=== PATIENT | male | born 1985 | race Caucasian/White ===

== ENCOUNTER 2017-10-01 06:54 | Emergency (ER) | payer BC, MEDICAID, OTHER ==
[~2017-10-01] VITALS: Ht 185.4 cm; Wt 109.0 kg
[2017-10-01] MEDS ORDERED: ACETAMINOPHEN 325MG TABLET PO ONE (07:30)
[2017-10-01 08:08] LABS: BASOPHILS % 0.7 % (0.0-2.0); HEMATOCRIT. 42.8 % (42.0-52.0); HEMOGLOBIN. 14.6 g/dL (14.0-18.0); LYMPHOCYTES % 26.9 % (20.0-50.0); MEAN CORPUSCULAR HEMOGLOBIN 28.2 pg (28.0-32.0); MEAN CORPUSCULAR VOLUME 82.9 fL (80.0-94.0); MEAN PLATELET VOLUME 8.7 fl (7.4-10.4); MONOCYTES % 6.9 % (2.0-8.0); NEUTROPHILS % 63.5 % (40.0-76.0); PLATELET 198 x1000/uL (130-400); RED BLOOD CELL COUNT 5.16 mill/uL (4.7-6.1); RED CELL DISTRIBUTION WIDTH 13.8 % (11.6-14.6)
[2017-10-01 08:22] LABS: CARBON DIOXIDE 26 mEq/L (21-32); CHLORIDE 106 mEq/L (98-107)
[2017-10-01] MEDS ORDERED: IOHEXOL-300 100 ML BOTTLE ONE (09:03)
[2017-10-01 09:40] VITALS: BP 117/77
== END 2017-10-01 09:40 | disposition home or self-care (01) ==
LOC: ER 06:54
DX: R10.32 Left lower quadrant pain (principal); F17.200 Nicotine dependence, unspecified, uncomplicated; V43.52XA Car driver injured in collision with other type car in traffic accident, initial encounter; Y93.89 Activity, other specified; Y92.89 Other specified places as the place of occurrence of the external cause; Y99.8 Other external cause status
CPT/HCPCS: 36415; 71010; 74177; 80053; 85025; 99285; Q9967; Z7610